=== PATIENT | female | born 1945 | race Two or more races ===

== ENCOUNTER 2022-02-11 12:16 | Emergency (ER) | payer OTHER ==
[~2022-02-11] VITALS: Ht 167.6 cm; Wt 56.2 kg
[~2022-02-11 12:16] MED LIST: CIPRO500 MG PO; FLAGYL500MG PO; INTESTINEX1 CAP PO; PROTONIX40 MG PO
[2022-02-11] MEDS ORDERED: SYNTHROID75 MCG PO (13:15)
[2022-02-11] MEDS ORDERED: NAMENDA XR28 MG PO (13:15)
[2022-02-11] MEDS ORDERED: EXELON1 EACH TD (13:17)
== END 2022-02-11 23:26 | disposition home or self-care (01) ==
LOC: ER 12:16
DX: R19.7 Diarrhea, unspecified (principal); R11.10 Vomiting, unspecified; Z20.822 Contact with and (suspected) exposure to COVID-19; Z91.013 Allergy to seafood